=== PATIENT | female | born 1930 | race Caucasian/White ===

== ENCOUNTER 2017-07-13 00:10 | Inpatient (IN) | payer MEDICAID, OTHER ==
--- NOTE | 2017-07-13 01:41 | ED Physician Chart ---
ED Chief Complaint/HPI - Patient Information Date Seen:: 07/13/17 Time Seen:: 01:41 Allergies:: Allergies Allergy/AdvReac Type Severity Reaction Status Date / Time No Known Allergies Allergy Verified 07/13/17 01:38 Family Medical History - Family Member Daughter History Unknown: Yes Ethnicity: Non- Living Status: Still Living ED Assessment Location:: scalp Laceration Type:: Simple Wound Length: 0.4 cm Prep/Irrigation:: NS, hydrogen peroxide, betadine Comments: 4 robin were placed
[2017-07-13 03:30] LABS: HEMATOCRIT 31.8 % (41.0-60); HEMOGLOBIN 10.6 gm/dL (12-16); MEAN CELL VOLUME 88.2 fl (81-100); MEAN CORPUSCULAR HEMOGLOBIN 29.5 pg (27.0-31.0); MEAN CORPUSCULAR HGB CONC 33.5 pg (28.0-36.0); MEAN PLATELET VOLUME 6.8 fl; PLATELET COUNT 321 Th/cmm (150-400); RED CELL DISTRIBUTION WIDTH 15.5 % (11.5-20.0)
[2017-07-13 03:43] LABS: WHITE BLOOD COUNT 15.6 Th/cmm (4.8-10.8)
[2017-07-13 03:44] LABS: ALB/GLOB RATIO 0.9 (1.0-1.8); ALBUMIN 2.4 gm/dL (3.7-5.3); ALKALINE PHOSPHATASE 39 U/L (34-104); BILIRUBIN,TOTAL 0.7 mg/dL (0.3-1.0); BUN - UREA NITROGEN 8 mg/dL (7-25); CALCIUM SERUM 8.2 mg/dL (8.6-10.3); CARBON DIOXIDE 31.7 mEq/L (21.0-31.0); CHLORIDE 98 mEq/L (98-107); CREATININE - SERUM 0.6 mg/dL (0.6-1.2); GLUCOSE 106 mg/dL (70-105); SGOT 13 U/L (13-39); SGPT/ALT 7 U/L (7-52); SODIUM SERUM 135 mEq/L (136-145); TOTAL PROTEIN,SERUM 5.2 gm/dL (6.0-8.3)
[2017-07-13 03:50] LABS: POTASSIUM SERUM 2.7 mEq/L (3.5-5.1)
[2017-07-13] MEDS ORDERED: 0.9% NS w/40 mEq KCL 1,000 ML IV ONE ×2 (04:02→04:26)
[2017-07-13 04:12] LABS: MANUAL DIFF REQUIRED? YES; TOTAL CELLS COUNTED 100
[2017-07-13 04:13] LABS: BAND NEUTROPHILE 4 % (0-10); LYMPHOCYTE 7 % (20-50); MONOCYTE 4 % (2-10); NEUTROPHILS 85 % (40-80); PLATELET ESTIMATE ADEQUATE (NORMAL)
[2017-07-13 04:17] LABS: URINE MICROSCOPIC INDICATED? YES; URINE SOURCE CATH
[2017-07-13 04:19] LABS: URINE BILIRUBIN NEGATIVE (NEGATIVE); URINE BLOOD SMALL (NEGATIVE); URINE GLUCOSE (UA) NEGATIVE (NEGATIVE); URINE KETONE NEGATIVE (NEGATIVE); URINE LEUKOCYTE ESTERASE LARGE (NEGATIVE); URINE NITRATE NEGATIVE (NEGATIVE); URINE PH 6.5 (4.6 - 8.0); URINE PROTEIN NEGATIVE (NEGATIVE); URINE UROBILINOGEN 0.2 E.U./dL (0.2 - 1.0)
[2017-07-13 04:20] LABS: URINE CLARITY HAZY (CLEAR); URINE COLOR YELLOW
[2017-07-13 04:23] LABS: URINE BACTERIA 3+ /hpf (NONE SEEN); URINE EPITHELIAL CELLS FEW /lpf (FEW); URINE WBC 25-50 /hpf (0-5)
[2017-07-13] MEDS ORDERED: cefTRIAXone 1 GM in Sodium Chloride 0.9% 50 ML IV ONE (05:22)
[2017-07-13] MEDS ORDERED: Potassium Chloride 20 mEq ER Tab PO ONE (08:35)
--- NOTE | 2017-07-13 08:43 | History and Physical ---
History of Present Illness - HPI Chief Complaint: Boone down with Head laceration HPI: patient was at home and felt down hitting her head, she had an open wound and was transported to ER for evaluation. In ER wound was suturated, Head CT was normal but was found Leukocytosis and UTI, reason why she was hospitalized. Vital Signs: Last Vital Signs Temp 99.9 F 07/13/17 00:30 Pulse 104 07/13/17 00:30 Resp 18 07/13/17 00:30 BP 122/62 07/13/17 00:30 Pulse Ox 97 07/13/17 00:30 Past Medical History Cardiovascular: Report: No Pertinent Hx, CAD, CHF Pulmonary: Report: No Pertinent Hx [employer]: Report: No Pertinent Hx GI: Report: No Pertinent Hx Psych: Report: No Pertinent Hx Musculoskeletal: Report: Weakness Infectious Disease: Report: No Pertinent Hx Renal/: Report: No Pertinent Hx Endocrine: Report: Hyperthyroidism Dermatology: Report: No Pertinent Hx - Past Surgical History Past Surgical History: No pertinent Hx Family Medical History - Family Member Daughter History Unknown: Yes Ethnicity: Non- Living Status: Still Living Social History Smoke: No Alcohol: None Drugs: None Lives: With Family Domestic Violence: Negative - Medications Home Medications: Home Medication Medication Instructions Recorded Type Ascorbic Acid [Vitamin C] 500 mg PO DAILY 07/13/17 History Calcium Carbonate/Vitamin D3 1 each PO BID 07/13/17 History [Calcium 600-Vit D3 400 Tablet] Digoxin [Lanoxin] 0.125 mg PO DAILY 07/13/17 History Ferrous Sulfate [Iron] 325 mg PO DAILY 07/13/17 History Furosemide [Lasix] 40 mg PO BID 07/13/17 History Levothyroxine [Synthroid] 0.05 mg PO QDAC 07/13/17 History Potassium Chloride 1 cap PO DAILY 07/13/17 History Sennosides [Senna Laxative] 8.6 mg PO DAILY 07/13/17 History - Allergies Allergies/Adverse Reactions: Allergies Allergy/AdvReac Type Severity Reaction Status Date / Time No Known Allergies Allergy Verified 07/13/17 01:38 Review of Systems - Review of Systems Constitutional: Report: No Significant Eyes: Report: No Significant ENT: Report: No Significant Respiratory: Report: No Significant Cardiovascular: Report: No Significant Gastrointestinal: Report: No Significant Genitourinary: Report: No Significant Musculoskeletal: Report: No Significant Skin: Report: No Significant Neurological: Report: No Significant Physical Exam - Physical Exam HEENT: Report: Ears Nose Throat within normal limits, Other (Sutured wound in head) Neck: Report: Within normal limits Cardiovascular Systems: Report: Regular, Rate and Rhythm Respiratory: Report: Breath Sounds are within normal limits Abdomen: Report: Non-tender to palpation Back: Report: Inspection of back is within normal limits. Extremities: Report: Non-tender to palpation. Skin: Report: Color of skin is within normal limits Neuro/Psych: Report: Mood affect is within normal limits - Assessment Assessment: Patient is awake, alert, calm, in no acute distress. Dx: Head injury, UTI, CHF, Hypothyroidism. - Plan Plan: Patient is on IV NS, AB, and home meds. Will continue to monitor.
--- NOTE | 2017-07-13 08:48 | Diagnostic Imaging Report ---
Exam: CT examination of the brain. HISTORY: Head trauma. Total DLP equals 599 CTDI equals 29.5. Findings: Multiple contiguous thin section of the brain were obtained from the base of skull to the vertex without the administration of contrast material. No prior studies available comparison. The study demonstrates prominence of cerebral sulci and ventricles consistent with atrophy. Periventricular ischemic white matter changes are noted long-standing etiology. There is no evidence of hemorrhage midline shift or edema. The cerebellum is intact. Bony calvarium demonstrates no evidence of fracture. The paranasal sinuses are well aerated. Calcification of vertebral arteries appreciated. IMPRESSION: Atrophy, periventricular ischemic white matter changes long-standing etiology.
--- NOTE | 2017-07-13 08:50 | Diagnostic Imaging Report ---
Exam: Left wrist joint. HISTORY: Trauma deformity Findings. Multiple views of left wrist joint reviewed. The study demonstrates severe osteopenia superimposed osteoporosis. There is evidence for impacted fracture of distal left radius with the dorsal angulation. The visualized carpal bones are intact. IMPRESSION: Severe osteopenia superimposed osteoporosis Impacted fracture distal left radius with the dorsal angulation..
[2017-07-13] MEDS ORDERED: CALCIUM CARBONATE PO SCH (09:00)
[2017-07-13] MEDS ORDERED: [UNRECOGNIZED DRUG - OTHER] PO SCH (09:00)
[2017-07-13] MEDS ORDERED: VITAMIN D3 PO SCH (09:00)
[2017-07-13] MEDS ORDERED: Non-Formulary Item 1 EA (Potassium Chloride [Potassium Chloride] 1 CAP) PO SCH (09:00)
[2017-07-13] MEDS: cefTRIAXone 1 GM in Sodium Chloride 0.9% 50 ML IV SCH (09:17)
[2017-07-13] MEDS: Potassium Chloride 10 mEq ER Tab PO SCH (09:30)
[2017-07-13] MEDS: Calcium Carb/Vit D 500 mg/200 U Tab PO SCH ×2 (09:33→16:54)
[2017-07-13] MEDS: Ferrous Sulfate 325 MG TAB PO SCH (09:33)
[2017-07-13] MEDS ORDERED: Pneumococcal Vaccine 0.5 mL Vial IM ONE (12:02)
[2017-07-13] MEDS: Sodium Chloride 0.9% 1,000 ML IV SCH (22:39)
[2017-07-14 06:35] LABS: % BASOPHILS 1.9 % (0.0-2.0); % EOSINOPHILS 5.5 % (0.0-5.0); % LYMPHOCYTES 15.8 % (20.0-50.0); % MONOCYTES 8.1 % (2.0-10.0); % NEUTROPHILS 68.7 % (40.0-80.0); BASOPHILE ABSOLUTE 0.1 Th/cumm (0-0.2); EOSINOPHILE ABSOLUTE 0.4 Th/cmm (0.1-0.4); HEMATOCRIT 32.2 % (41.0-60); HEMOGLOBIN 10.7 gm/dL (12-16); LYMPHOCYTE ABSOLUTE 1.2 Th/cmm (1.5-3.0); MEAN CELL VOLUME 88.2 fl (81-100); MEAN CORPUSCULAR HEMOGLOBIN 29.4 pg (27.0-31.0); MEAN CORPUSCULAR HGB CONC 33.3 pg (28.0-36.0); MEAN PLATELET VOLUME 7.3 fl; MONOCYTE ABSOLUTE 0.6 Th/cmm (0.3-1.0); NEUTROPHILE ABSOLUTE 5.1 Th/cmm (1.8-8.0); PLATELET COUNT 321 Th/cmm (150-400); RED BLOOD COUNT 3.65 Mil/cmm (3.80-5.20); RED CELL DISTRIBUTION WIDTH 15.8 % (11.5-20.0)
[2017-07-14 06:43] LABS: WHITE BLOOD COUNT 7.4 Th/cmm (4.8-10.8)
[2017-07-14 07:05] LABS: ALB/GLOB RATIO 0.9 (1.0-1.8); ALBUMIN 2.4 gm/dL (3.7-5.3); ALKALINE PHOSPHATASE 38 U/L (34-104); BILIRUBIN,TOTAL 0.4 mg/dL (0.3-1.0); BUN - UREA NITROGEN 7 mg/dL (7-25); CALCIUM SERUM 8.3 mg/dL (8.6-10.3); CARBON DIOXIDE 34.2 mEq/L (21.0-31.0); CHLORIDE 101 mEq/L (98-107); CREATININE - SERUM 0.6 mg/dL (0.6-1.2); GLUCOSE 75 mg/dL (70-105); POTASSIUM SERUM 3.2 mEq/L (3.5-5.1); SGOT 17 U/L (13-39); SGPT/ALT 7 U/L (7-52); SODIUM SERUM 141 mEq/L (136-145); TOTAL PROTEIN,SERUM 5.2 gm/dL (6.0-8.3)
[2017-07-14] MEDS ORDERED: Levothyroxine 0.05 Mg Tab PO SCH (07:30)
--- NOTE | 2017-07-14 08:39 | General Progress Note ---
Subjective - Review of Systems Service Date: 07/14/17 Subjective: I am OK Objective - Results Result Diagrams: 07/14/17 06:00 07/14/17 06:00 Recent Labs: Laboratory Last Values WBC 7.4 Th/cmm (4.8-10.8) D 07/14/17 06:00 RBC 3.65 Mil/cmm (3.80-5.20) L 07/14/17 06:00 Hgb 10.7 gm/dL (12-16) L 07/14/17 06:00 Hct 32.2 % (41.0-60) L 07/14/17 06:00 MCV 88.2 fl (81-100) 07/14/17 06:00 MCH 29.4 pg (27.0-31.0) 07/14/17 06:00 MCHC Differential 33.3 pg (28.0-36.0) 07/14/17 06:00 RDW 15.8 % (11.5-20.0) 07/14/17 06:00 Plt Count 321 Th/cmm (150-400) 07/14/17 06:00 MPV 7.3 fl 07/14/17 06:00 Neutrophils % 68.7 % (40.0-80.0) 07/14/17 06:00 Band Neutrophils % 4 % (0-10) 07/13/17 03:23 Lymphocytes % 15.8 % (20.0-50.0) L 07/14/17 06:00 Monocytes % 8.1 % (2.0-10.0) 07/14/17 06:00 Eosinophils % 5.5 % (0.0-5.0) H 07/14/17 06:00 Basophils % 1.9 % (0.0-2.0) 07/14/17 06:00 Neutrophils (Manual) 85 % (40-80) H 07/13/17 03:23 Lymphocytes 7 % (20-50) L 07/13/17 03:23 Monocytes 4 % (2-10) 07/13/17 03:23 Platelet Estimate ADEQUATE (NORMAL) 07/13/17 03:23 Sodium 141 mEq/L (136-145) 07/14/17 06:00 Potassium 3.2 mEq/L (3.5-5.1) L 07/14/17 06:00 Chloride 101 mEq/L (98-107) 07/14/17 06:00 Carbon Dioxide 34.2 mEq/L (21.0-31.0) H 07/14/17 06:00 Anion Gap 9.0 (7.0-16.0) 07/14/17 06:00 BUN 7 mg/dL (7-25) 07/14/17 06:00 Creatinine 0.6 mg/dL (0.6-1.2) 07/14/17 06:00 Est GFR ( Amer) TNP 07/14/17 06:00 Est GFR (Non-Af Amer) TNP 07/14/17 06:00 BUN/Creatinine Ratio 11.7 07/14/17 06:00 Glucose 75 mg/dL (70-105) 07/14/17 06:00 Whole Bld Lactic Acid 0.88 mmol/L (0.60-1.99) 07/13/17 03:23 Calcium 8.3 mg/dL (8.6-10.3) L 07/14/17 06:00 Total Bilirubin 0.4 mg/dL (0.3-1.0) 07/14/17 06:00 AST 17 U/L (13-39) 07/14/17 06:00 ALT 7 U/L (7-52) 07/14/17 06:00 Alkaline Phosphatase 38 U/L (34-104) 07/14/17 06:00 Total Protein 5.2 gm/dL (6.0-8.3) L 07/14/17 06:00 Albumin 2.4 gm/dL (3.7-5.3) L 07/14/17 06:00 Globulin 2.8 gm/dL 07/14/17 06:00 Albumin/Globulin Ratio 0.9 (1.0-1.8) L 07/14/17 06:00 TSH 13.35 uIU/ml (0.34-5.60) H 07/14/17 06:00 Urine Source CATH 07/13/17 04:00 Urine Color YELLOW 07/13/17 04:00 Urine Clarity HAZY (CLEAR) 07/13/17 04:00 Urine pH 6.5 (4.6 - 8.0) 07/13/17 04:00 Ur Specific [place] 1.015 (1.005-1.030) 07/13/17 04:00 Urine Protein NEGATIVE mg/dL (NEGATIVE) 07/13/17 04:00 Urine Glucose (UA) NEGATIVE mg/dL (NEGATIVE) 07/13/17 04:00 Urine Ketones NEGATIVE mg/dL (NEGATIVE) 07/13/17 04:00 Urine Blood SMALL (NEGATIVE) H 07/13/17 04:00 Urine Nitrate NEGATIVE (NEGATIVE) 07/13/17 04:00 Urine Bilirubin NEGATIVE (NEGATIVE) 07/13/17 04:00 Urine Urobilinogen 0.2 E.U./dL (0.2 - 1.0) 07/13/17 04:00 Ur Leukocyte Esterase LARGE (NEGATIVE) H 07/13/17 04:00 Urine RBC 2-5 /hpf (0-5) 07/13/17 04:00 Urine WBC 25-50 /hpf (0-5) H 07/13/17 04:00 Ur Epithelial Cells FEW /lpf (FEW) 07/13/17 04:00 Urine Bacteria 3+ /hpf (NONE SEEN) H 07/13/17 04:00 - Physical Exam Vitals and I&O: Vital Signs Temp 97.6 F 07/14/17 08:00 Pulse 79 07/14/17 08:00 Resp 18 07/14/17 08:08 BP 104/55 07/14/17 08:00 Pulse Ox 97 07/14/17 08:00 Intake & Output 07/13/17 07/14/17 07/14/17 18:59 06:59 18:59 Intake Total 100 Balance 100 Weight (lbs) 45.359 kg Intake: Oral 100 Other: # Voids 2 # Bowel Movements 0 Active Medications: Current Medications Ascorbic Acid (Vitamin C) [address] [facility] Stop: 09/11/17 08:59 Last Admin: 07/13/17 09:30 Dose: 500 mg Calcium/Vitamin D (Oscal W/Vitamin D) [address] [facility] Stop: 09/11/17 08:59 Last Admin: 07/13/17 16:54 Dose: 1 tab Digoxin (Lanoxin) 0.125 mg PO DAILY [facility] Stop: 09/11/17 08:59 Last Admin: 07/13/17 09:33 Dose: 0.125 mg Ferrous Sulfate (Iron) 325 mg PO DAILY [facility] Stop: 09/11/17 08:59 Last Admin: 07/13/17 09:33 Dose: 325 mg Furosemide (Lasix) 40 mg PO BID [facility] Stop: 09/11/17 08:59 Last Admin: 07/13/17 16:46 Dose: 40 mg Sodium Chloride (Nacl 0.9%) 1,000 mls @ 75 mls/hr IV .[id number] [facility] Stop: 09/11/17 08:31 Last Admin: 07/13/17 22:39 Dose: 75 mls/hr Ceftriaxone Sodium 1 gm/ (Sodium Chloride) 50 mls @ 100 mls/hr IV Q24HR [facility] Stop: 09/11/17 08:44 Last Admin: 07/13/17 09:17 Dose: Not Given Potassium Chloride (Klor-Con) 10 meq PO DAILY [facility] Stop: 09/11/17 08:59 Last Admin: 07/13/17 09:30 Dose: 10 meq Senna (Senna) 8.6 mg PO DAILY [facility] Stop: 09/11/17 08:59 Last Admin: 07/13/17 09:30 Dose: 8.6 mg General: Alert, No acute distress HEENT: Atraumatic Neck: Supple Cardiovascular: Regular rate Lungs: Clear to auscultation Abdomen: Bowel sounds, Soft Extremities: Other (There is fracture of left wrist.) Neurological: Other (Unatable gait) Skin: Other (Warm and dry) Psych/Mental Status: Mental status NL Assessment/Plan - Assessment Assessment: Patient is awake, alert, calm, in no acute distress. Dx: Head injury, UTI, CHF, Hypothyroidism, Wrist fracture. - Plan Plan: Patient is on IV NS, AB, and home meds. Consult with Ortho requested. Will continue to monitor.
[2017-07-14] MEDS: cefTRIAXone 1 GM in Sodium Chloride 0.9% 50 ML IV SCH (08:42)
[2017-07-14] MEDS: Calcium Carb/Vit D 500 mg/200 U Tab PO SCH ×2 (08:43→17:01)
[2017-07-14] MEDS: Potassium Chloride 10 mEq ER Tab PO SCH (08:43)
[2017-07-14] MEDS: Ferrous Sulfate 325 MG TAB PO SCH (08:43)
[2017-07-14] MEDS ORDERED: Probiotic Screen MC PRN (17:00)
[2017-07-14] MEDS: Sodium Chloride 0.9% 1,000 ML IV SCH (17:01)
--- NOTE | 2017-07-14 22:42 | Consultation ---
DATE OF CONSULTATION: 07/13/2017 HISTORY AND PHYSICAL: This is an 87 years old female patient who had a fall. Following this, the patient had a fracture of the right radius. The patient is advised to have cardiac clearance, hence the patient is seen. The patient has no complaint of chest pain, palpitation. The patient during the fall had laceration of the scalp. PAST MEDICAL HISTORY: Hypertension, COPD, congestive heart failure, chronic right radius fracture, osteoporosis, iron deficiency anemia. FAMILY HISTORY: Unremarkable. SOCIAL HISTORY: No history of smoking, alcohol abuse. ALLERGIES: No known allergies. PHYSICAL EXAMINATION: VITAL SIGNS: Blood pressure 130/80, pulse 70, respirations 20. HEAD: Normocephalic. No lumps or bumps. EYES: Pupils equal, reactive to light. Fundi shows AV nicking, sclerae white, conjunctivae pink. NECK: Carotid 2+. Normal upstroke. JVD flat. Thyroid not palpable. Lymph nodes not palpable. CHEST: Shows increased AP diameter. No kyphosis, scoliosis. LUNGS: Bilateral bronchovesicular breath sounds. Occasional wheeze. No rales. HEART: PMI fifth intercostal space with lateral to midclavicular line. S1, S2. No S3, S4. Systolic murmur grade 2/6, lower left sternal border without radiation. ABDOMEN: Soft. Liver, spleen not palpable. No organomegaly. Bowel sounds active. NEUROLOGIC: Unremarkable. EXTREMITIES: Peripheral pulses 2+. No pedal edema. The patient has right radius fracture. CLINICAL IMPRESSION: 1. Laceration to the scalp. 2. Right radius fracture. 3. Hypertension. 4. Chronic obstructive pulmonary disease. 5. Congestive heart failure. 6. Chronic urinary tract infection on Rocephin. 7. Osteoporosis. 8. Iron deficiency anemia. PLAN: The patient is cleared for surgery. Due to the age, the patient is a high risk. JOB# [id number]
[2017-07-14] MEDS ORDERED: Piperacillin Sodium/Tazobact 3.375 gm Vial IV ONE (23:53)
--- NOTE | 2017-07-15 00:15 | Consultation ---
DATE OF CONSULTATION: 07/14/2017 INFECTIOUS DISEASE CONSULTATION REFERRING PHYSICIAN: José Smart MD. REASON FOR CONSULTATION: UTI and sepsis. HISTORY OF PRESENT ILLNESS: The patient is an 87-year-old female with no significant past medical history, fell down and hit her head. The patient developed upon wound, so she was brought to the ER for further evaluation and management. On initial evaluation, the patient was afebrile and her WBC count was 15,600 and neutrophils 85%. Sepsis workup was performed. Blood culture grew gram-negative rods. Urinalysis showed pyuria and bacteriuria. The patient was started on Rocephin and Infectious Disease consultation was called for further antibiotic management. PAST MEDICAL HISTORY: None significant. MEDICATIONS: See medication reconciliation sheet. Antibiotic-neal, the patient is receiving Rocephin. FAMILY HISTORY: Not available. SOCIAL HISTORY: The patient lives at home with the family. No history of smoking, alcohol, or drug use. ALLERGIES: NKDA. REVIEW OF SYSTEMS: CONSTITUTIONAL: The patient denies fever or chills. The patient denies any generalized weakness. HEENT: No diplopia, no photophobia, and no sore throat. RESPIRATORY: No cough. No shortness of breath. CARDIOVASCULAR: No chest pain or palpitation. GASTROINTESTINAL: No nausea, no vomiting, no diarrhea, and no constipation. GENITOURINARY: No dysuria. NEUROLOGIC: No headache, no dizziness, and no focal weakness. PHYSICAL EXAMINATION: VITAL SIGNS: Current vital signs shows temperature is 97.8 degree Fahrenheit, pulse 76, respirations 18, and blood pressure 122/56. GENERAL: The patient is comfortable lying in bed. HEENT: Head is normocephalic and atraumatic. Oral cavity moist, pink tongue. Eyes: No pallor, no icterus. Pupils PERRLA, EOMI. NECK: Supple. No JVD. No carotid bruit. Trachea in midline. CHEST: Bilateral breath sounds. No crackles or wheezing. HEART: S1, S2 within normal limit. Regular rhythm. No murmur. ABDOMEN: Soft, nontender, and nondistended. Bowel sounds present. EXTREMITIES: No cyanosis, no clubbing, and no edema. NEUROLOGICAL: Alert, awake, and oriented x 3. BACK: No CVA tenderness. SKIN: The patient has open wound with surrounding redness in back of the head and there are some skin tears also. LABORATORY DATA: Current lab shows WBC count is 7400, hemoglobin 10.7, hematocrit 32.2, platelets are 321,000, neutrophils 69%. Sodium is 141, potassium is 3.2, chloride is 101, bicarbonate is 34, BUN is 7, creatinine is 0.6, and glucose is 75. AST is 13.35. Urinalysis shows hazy urine with a large leukoesterase, wbc's 25-50, and 3+ bacteria. Urine culture grew gram-negative rods more than 100,000 and blood culture one set grew gram-negative rods. IMPRESSION: 1. Gram-negative wilder sepsis, improving. 2. Urinary tract infection, rule out pyelonephritis. 3. Scalp wound with mild cellulitis. 4. Anemia. RECOMMENDATIONS AND PLAN: Change the Rocephin to Zosyn and repeat blood culture in the morning and renal ultrasound. Depending on the test report and culture report, we will define further antibiotic therapy. Discussed with the patient. [facility]# [id number] MTDD
[2017-07-15 06:38] LABS: EOSINOPHILE ABSOLUTE 0.1 Th/cmm (0.1-0.4); HEMATOCRIT 31.7 % (41.0-60); HEMOGLOBIN 10.6 gm/dL (12-16); LYMPHOCYTE ABSOLUTE 0.4 Th/cmm (1.5-3.0); MEAN CORPUSCULAR HEMOGLOBIN 29.7 pg (27.0-31.0); MEAN CORPUSCULAR HGB CONC 33.4 pg (28.0-36.0); MEAN PLATELET VOLUME 7.3 fl; MONOCYTE ABSOLUTE 0.1 Th/cmm (0.3-1.0); NEUTROPHILE ABSOLUTE 11.2 Th/cmm (1.8-8.0); PLATELET COUNT 274 Th/cmm (150-400); RED BLOOD COUNT 3.56 Mil/cmm (3.80-5.20); RED CELL DISTRIBUTION WIDTH 15.7 % (11.5-20.0)
[2017-07-15 06:39] LABS: WHITE BLOOD COUNT 11.8 Th/cmm (4.8-10.8)
[2017-07-15 07:03] LABS: ALB/GLOB RATIO 0.9 (1.0-1.8); ALBUMIN 2.4 gm/dL (3.7-5.3); ALKALINE PHOSPHATASE 33 U/L (34-104); ANION GAP 10.9 (7.0-16.0); BILIRUBIN,TOTAL 0.4 mg/dL (0.3-1.0); BUN - UREA NITROGEN 6 mg/dL (7-25); CALCIUM SERUM 8.1 mg/dL (8.6-10.3); CARBON DIOXIDE 32.2 mEq/L (21.0-31.0); CHLORIDE 98 mEq/L (98-107); CREATININE - SERUM 0.6 mg/dL (0.6-1.2); GLUCOSE 99 mg/dL (70-105); POTASSIUM SERUM 3.1 mEq/L (3.5-5.1); SGOT 16 U/L (13-39); SGPT/ALT 7 U/L (7-52); SODIUM SERUM 138 mEq/L (136-145); TOTAL PROTEIN,SERUM 5.2 gm/dL (6.0-8.3)
[2017-07-15] MEDS: Sodium Chloride 0.9% 1,000 ML IV SCH ×2 (07:21→22:16)
[2017-07-15] MEDS: Levothyroxine 0.075 Mg Tab PO SCH (07:21)
[2017-07-15] MEDS: Ferrous Sulfate 325 MG TAB PO SCH (08:56)
[2017-07-15] MEDS: Calcium Carb/Vit D 500 mg/200 U Tab PO SCH ×2 (08:56→17:07)
[2017-07-15] MEDS: Potassium Chloride 10 mEq ER Tab PO SCH (08:57)
[2017-07-15] MEDS: Lactobacillus Rhamnosus GG 15 Billion CFU CAP.SPRINK PO SCH (08:57)
[2017-07-15] MEDS ORDERED: Potassium Phosphate 20 MMOLE in Sodium Chloride 0.9% 250 ML IV ONE (12:41)
[2017-07-15] MEDS ORDERED: Potassium Chloride 10 mEq ER Tab PO SCH (12:41)
--- NOTE | 2017-07-15 12:44 | General Progress Note ---
Subjective - Review of Systems Service Date: 07/15/17 Subjective: I am OK Objective - Results Result Diagrams: 07/15/17 05:40 07/15/17 05:40 Recent Labs: Laboratory Last Values WBC 11.8 Th/cmm (4.8-10.8) H D 07/15/17 05:40 RBC 3.56 Mil/cmm (3.80-5.20) L 07/15/17 05:40 Hgb 10.6 gm/dL (12-16) L 07/15/17 05:40 Hct 31.7 % (41.0-60) L 07/15/17 05:40 MCV 89.0 fl (81-100) 07/15/17 05:40 MCH 29.7 pg (27.0-31.0) 07/15/17 05:40 MCHC Differential 33.4 pg (28.0-36.0) 07/15/17 05:40 RDW 15.7 % (11.5-20.0) 07/15/17 05:40 Plt Count 274 Th/cmm (150-400) 07/15/17 05:40 MPV 7.3 fl 07/15/17 05:40 Neutrophils % 68.7 % (40.0-80.0) 07/14/17 06:00 Band Neutrophils % 4 % (0-10) 07/13/17 03:23 Lymphocytes % 15.8 % (20.0-50.0) L 07/14/17 06:00 Monocytes % 8.1 % (2.0-10.0) 07/14/17 06:00 Eosinophils % 5.5 % (0.0-5.0) H 07/14/17 06:00 Basophils % 1.9 % (0.0-2.0) 07/14/17 06:00 Neutrophils (Manual) 85 % (40-80) H 07/13/17 03:23 Lymphocytes 7 % (20-50) L 07/13/17 03:23 Monocytes 4 % (2-10) 07/13/17 03:23 Platelet Estimate ADEQUATE (NORMAL) 07/13/17 03:23 Sodium 138 mEq/L (136-145) 07/15/17 05:40 Potassium 3.1 mEq/L (3.5-5.1) L 07/15/17 05:40 Chloride 98 mEq/L (98-107) 07/15/17 05:40 Carbon Dioxide 32.2 mEq/L (21.0-31.0) H 07/15/17 05:40 Anion Gap 10.9 (7.0-16.0) 07/15/17 05:40 BUN 6 mg/dL (7-25) L 07/15/17 05:40 Creatinine 0.6 mg/dL (0.6-1.2) 07/15/17 05:40 Est GFR ( Amer) TNP 07/15/17 05:40 Est GFR (Non-Af Amer) TNP 07/15/17 05:40 BUN/Creatinine Ratio 10.0 07/15/17 05:40 Glucose 99 mg/dL (70-105) 07/15/17 05:40 Whole Bld Lactic Acid 0.88 mmol/L (0.60-1.99) 07/13/17 03:23 Calcium 8.1 mg/dL (8.6-10.3) L 07/15/17 05:40 Total Bilirubin 0.4 mg/dL (0.3-1.0) 07/15/17 05:40 AST 16 U/L (13-39) 07/15/17 05:40 ALT 7 U/L (7-52) 07/15/17 05:40 Alkaline Phosphatase 33 U/L (34-104) L 07/15/17 05:40 Total Protein 5.2 gm/dL (6.0-8.3) L 07/15/17 05:40 Albumin 2.4 gm/dL (3.7-5.3) L 07/15/17 05:40 Globulin 2.8 gm/dL 07/15/17 05:40 Albumin/Globulin Ratio 0.9 (1.0-1.8) L 07/15/17 05:40 TSH 13.35 uIU/ml (0.34-5.60) H 07/14/17 06:00 Urine Source CATH 07/13/17 04:00 Urine Color YELLOW 07/13/17 04:00 Urine Clarity HAZY (CLEAR) 07/13/17 04:00 Urine pH 6.5 (4.6 - 8.0) 07/13/17 04:00 Ur Specific [place] 1.015 (1.005-1.030) 07/13/17 04:00 Urine Protein NEGATIVE mg/dL (NEGATIVE) 07/13/17 04:00 Urine Glucose (UA) NEGATIVE mg/dL (NEGATIVE) 07/13/17 04:00 Urine Ketones NEGATIVE mg/dL (NEGATIVE) 07/13/17 04:00 Urine Blood SMALL (NEGATIVE) H 07/13/17 04:00 Urine Nitrate NEGATIVE (NEGATIVE) 07/13/17 04:00 Urine Bilirubin NEGATIVE (NEGATIVE) 07/13/17 04:00 Urine Urobilinogen 0.2 E.U./dL (0.2 - 1.0) 07/13/17 04:00 Ur Leukocyte Esterase LARGE (NEGATIVE) H 07/13/17 04:00 Urine RBC 2-5 /hpf (0-5) 07/13/17 04:00 Urine WBC 25-50 /hpf (0-5) H 07/13/17 04:00 Ur Epithelial Cells FEW /lpf (FEW) 07/13/17 04:00 Urine Bacteria 3+ /hpf (NONE SEEN) H 07/13/17 04:00 - Physical Exam Vitals and I&O: Vital Signs Temp 97.1 F 07/15/17 08:00 Pulse 95 07/15/17 08:56 Resp 20 07/15/17 08:00 BP 103/47 07/15/17 08:56 Pulse Ox 97 07/15/17 08:00 Intake & Output 07/14/17 07/15/17 07/15/17 18:59 06:59 18:59 Intake Total 1050 1050 50 Balance 1050 1050 50 Weight (lbs) 47.627 kg Intake: Intake, IV Amount 1050 1000 50 Piperacillin Sodium/ 50 Tazobact 3.375 gm In Sodium Chloride 0.9% 50 ml @ 100 mls/hr IV Q8H [facility] Rx#:[id number] Sodium Chloride 0.9% 1, 1000 1000 000 ml @ 75 mls/hr IV . [id number] [facility] Rx#:[id number] 1 gm In 50 Sodium Chloride 0.9% 50 ml @ 100 mls/hr IV Q24HR [facility] Rx#:[id number] Oral 50 Other: # Voids 3 # Bowel Movements 0 Active Medications: Current Medications Acetaminophen (Tylenol) 650 mg PO Q6H PRN PRN Reason: Pain (Moderate) Stop: 09/13/17 10:44 Last Admin: 07/15/17 11:24 Dose: 650 mg Ascorbic Acid (Vitamin C) 500 mg PO DAILY [facility] Stop: 09/11/17 08:59 Last Admin: 07/15/17 08:56 Dose: 500 mg Calcium/Vitamin D (Oscal W/Vitamin D) 1 tab PO BID [facility] Stop: 09/11/17 08:59 Last Admin: 07/15/17 08:56 Dose: 1 tab Digoxin (Lanoxin) 0.125 mg PO DAILY [facility] Stop: 09/11/17 08:59 Last Admin: 07/15/17 08:56 Dose: 0.125 mg Ferrous Sulfate (Iron) 325 mg PO DAILY [facility] Stop: 09/11/17 08:59 Last Admin: 07/15/17 08:56 Dose: 325 mg Furosemide (Lasix) 40 mg PO BID [facility] Stop: 09/11/17 08:59 Last Admin: 07/15/17 08:56 Dose: Not Given Sodium Chloride (Nacl 0.9%) 1,000 mls @ 75 mls/hr IV .[id number] [facility] Stop: 09/11/17 08:31 Last Admin: 07/15/17 07:21 Dose: 75 mls/hr Piperacillin Sod/Tazobactam (Sod 3.375 gm/ Sodium Chloride) 50 mls @ 100 mls/ hr IV Q8H [facility] Stop: 09/13/17 07:59 Last Infusion: 07/15/17 11:23 Dose: Infused Potassium Phosphate 20 mmole/ (Sodium Chloride) 256.6667 mls @ 42.5 mls/hr IV X1 ONE Stop: 07/15/17 18:43 Lactobacillus Rhamnosus (Culturelle 15b) 1 each PO DAILY [facility] Stop: 09/13/17 08:59 Last Admin: 07/15/17 08:57 Dose: 1 each Levothyroxine Sodium (Synthroid) 0.075 mg PO QDAC [facility] Stop: 09/13/17 07:29 Last Admin: 07/15/17 07:21 Dose: 0.075 mg Miscellaneous (Probiotic Screen) 1 Health system PRN PRN PRN Reason: PROTOCOL Stop: 09/12/17 16:59 Potassium Chloride (Klor-Con) 20 meq PO DAILY [facility] Stop: 09/11/17 08:59 Senna (Senna) 8.6 mg PO DAILY [facility] Stop: 09/11/17 08:59 Last Admin: 07/15/17 08:57 Dose: 8.6 mg General: Alert, No acute distress HEENT: Atraumatic Neck: Supple Cardiovascular: Regular rate Lungs: Clear to auscultation Abdomen: Bowel sounds, Soft Extremities: Other (There is fracture of left wrist.) Neurological: Other (Unatable gait) Skin: Other (Warm and dry) Psych/Mental Status: Mental status NL - Procedures Procedures: Procedures Procedure Code Date REPAIR SCALP SKIN, EXTERNAL APPROACH [id number] 07/13/17 RPR S/N/AX/GEN/TRNK 2.5CM/< 31166 07/13/17 Assessment/Plan - Assessment Assessment: Patient is awake, alert, calm, in no acute distress. WBC increased today. Dx: Head injury, UTI, CHF, Hypothyroidism, Wrist fracture. - Plan Plan: Patient is on IV NS, AB, K is replaced, and home meds. Already seen by Ortho. Will continue to monitor. Nutritional Asmnt/Malnutr-PDOC - Dietary Evaluation Malnutrition Findings (Please click <Entered> for more info): Nutritional Asmnt/Malnutrition Start: 07/14/17 15: 11 Text: Status: Complete Freq: Document 07/14/17 16:29 LCHENG (Rec: 07/14/17 16:42 [email or web address] [id number]) Nutritional Asmnt/Malnutrition Patient General Information Nutritional Screening High Risk Consult Diagnosis leukocytosis, possiblely secondary to UTI Pertinent Medical Hx/Surgical Hx CAD, CFH, weakness Subjective Information Pt seen lying in bed at the time of visit, awake and alert . Pt reported appetite pretty good, has very few teeth noted , denied chewing or swallowing problem. Pt likes food, no food prefernce provided. Pt appeared mild muscle wasting on arms. Checked pt again in the afternoon, pt was confused . Per DIRT SHOVELER, pt consumed about 60% of lunch, ate slowly, will continue to monitor dinner. Current Diet Order/ Nutrition Support [facility] soft chopped, 1800 jasmyne ADA, ccho 45gm Pertinent Medications vitamin C, calcium, vitamin D, iron, lasix, synthroid, kcl, senna, NAcl 0.9% Pertinent Labs 07/14 Na 141, K 3.2, Cl 101, BUN 7, Cr 0.6, Ca 8.3, Glucose 75, Alb 2.4 Nutritional Hx/Data Height 1.63 m Height (Calculated Centimeters) 162.6 Current Weight (lbs) 45.359 kg Weight (Calculated Kilograms) 45.4 Weight (Calculated Grams) 42958.2 [place] Body Weight 120 % [place] Body Weight 83 Body Mass Index (BMI) 17.2 Weight Status Underweight GI Symptoms GI Symptoms None Last BM none Usual diet at home pt lives with family, eats vegetables, meat, dairy Skin Integrity/Comment: bruise to R/L arm, skin tear to right leg and buttocks, laceration to left head, has 4 stiches on left side of scaple Current %PO Fair (50-74%) Estimated Nutritional Goals Calories/Kcals/Kg 25-30 Kcals Calculated 5006-6524 based on IBW 54.5kg Protein g/k-1.2 Protein Calculated 55-65 Fluid: ml 1363-1635ml (1ml/kcal) Nutritional Problem 2. Problem Problem underweight Etiology possible inadequate energy intake Signs/Symptoms: BMI 17.2 1. Problem Problem altered nutrition related lab values Etiology imbalanced electrolytes Signs/Symptoms: K 3.2 Malnutrition Alert Protein-Calorie Malnutrition N/A Is there a minimum of two criteria No selected? Query Text:Check all the applicable criteria. A minimum of two criteria are recommended for diagnosis of either severe or non-severe malnutrition. Intervention/Recommendation Comments 1. If pt shows chewing difficulty, will consider down grade to [facility] soft ground diet. DIRT SHOVELER made aware, will report to RN if need diet modification. 2. Monitor PO intake and tolerance, wt, labs and skin integrity 3. F/U as high risk in 2-3 days, 07/16-07/17 Expected Outcomes/Goals Expected Outcomes/Goals 1. PO intake to meet at least 75% of nutritional needs. 2. Wt stability, skin to remain intact, labs to approach WNL.
--- NOTE | 2017-07-15 14:31 | Infectious Disease Prog Note ---
Infectious Disease Subjective - Review of Systems Service Date: 07/15/17 Subjective: There is no new change, no fever. Infectious Disease Objective - Results Result Diagrams: 07/15/17 05:40 07/15/17 05:40 Recent Labs: Laboratory Last Values WBC 11.8 Th/cmm (4.8-10.8) H D 07/15/17 05:40 RBC 3.56 Mil/cmm (3.80-5.20) L 07/15/17 05:40 Hgb 10.6 gm/dL (12-16) L 07/15/17 05:40 Hct 31.7 % (41.0-60) L 07/15/17 05:40 MCV 89.0 fl (81-100) 07/15/17 05:40 MCH 29.7 pg (27.0-31.0) 07/15/17 05:40 MCHC Differential 33.4 pg (28.0-36.0) 07/15/17 05:40 RDW 15.7 % (11.5-20.0) 07/15/17 05:40 Plt Count 274 Th/cmm (150-400) 07/15/17 05:40 MPV 7.3 fl 07/15/17 05:40 Neutrophils % 68.7 % (40.0-80.0) 07/14/17 06:00 Band Neutrophils % 4 % (0-10) 07/13/17 03:23 Lymphocytes % 15.8 % (20.0-50.0) L 07/14/17 06:00 Monocytes % 8.1 % (2.0-10.0) 07/14/17 06:00 Eosinophils % 5.5 % (0.0-5.0) H 07/14/17 06:00 Basophils % 1.9 % (0.0-2.0) 07/14/17 06:00 Neutrophils (Manual) 85 % (40-80) H 07/13/17 03:23 Lymphocytes 7 % (20-50) L 07/13/17 03:23 Monocytes 4 % (2-10) 07/13/17 03:23 Platelet Estimate ADEQUATE (NORMAL) 07/13/17 03:23 Sodium 138 mEq/L (136-145) 07/15/17 05:40 Potassium 3.1 mEq/L (3.5-5.1) L 07/15/17 05:40 Chloride 98 mEq/L (98-107) 07/15/17 05:40 Carbon Dioxide 32.2 mEq/L (21.0-31.0) H 07/15/17 05:40 Anion Gap 10.9 (7.0-16.0) 07/15/17 05:40 BUN 6 mg/dL (7-25) L 07/15/17 05:40 Creatinine 0.6 mg/dL (0.6-1.2) 07/15/17 05:40 Est GFR ( Amer) TNP 07/15/17 05:40 Est GFR (Non-Af Amer) TNP 07/15/17 05:40 BUN/Creatinine Ratio 10.0 07/15/17 05:40 Glucose 99 mg/dL (70-105) 07/15/17 05:40 Whole Bld Lactic Acid 0.88 mmol/L (0.60-1.99) 07/13/17 03:23 Calcium 8.1 mg/dL (8.6-10.3) L 07/15/17 05:40 Total Bilirubin 0.4 mg/dL (0.3-1.0) 07/15/17 05:40 AST 16 U/L (13-39) 07/15/17 05:40 ALT 7 U/L (7-52) 07/15/17 05:40 Alkaline Phosphatase 33 U/L (34-104) L 07/15/17 05:40 Total Protein 5.2 gm/dL (6.0-8.3) L 07/15/17 05:40 Albumin 2.4 gm/dL (3.7-5.3) L 07/15/17 05:40 Globulin 2.8 gm/dL 07/15/17 05:40 Albumin/Globulin Ratio 0.9 (1.0-1.8) L 07/15/17 05:40 TSH 13.35 uIU/ml (0.34-5.60) H 07/14/17 06:00 Urine Source CATH 07/13/17 04:00 Urine Color YELLOW 07/13/17 04:00 Urine Clarity HAZY (CLEAR) 07/13/17 04:00 Urine pH 6.5 (4.6 - 8.0) 07/13/17 04:00 Ur Specific [place] 1.015 (1.005-1.030) 07/13/17 04:00 Urine Protein NEGATIVE mg/dL (NEGATIVE) 07/13/17 04:00 Urine Glucose (UA) NEGATIVE mg/dL (NEGATIVE) 07/13/17 04:00 Urine Ketones NEGATIVE mg/dL (NEGATIVE) 07/13/17 04:00 Urine Blood SMALL (NEGATIVE) H 07/13/17 04:00 Urine Nitrate NEGATIVE (NEGATIVE) 07/13/17 04:00 Urine Bilirubin NEGATIVE (NEGATIVE) 07/13/17 04:00 Urine Urobilinogen 0.2 E.U./dL (0.2 - 1.0) 07/13/17 04:00 Ur Leukocyte Esterase LARGE (NEGATIVE) H 07/13/17 04:00 Urine RBC 2-5 /hpf (0-5) 07/13/17 04:00 Urine WBC 25-50 /hpf (0-5) H 07/13/17 04:00 Ur Epithelial Cells FEW /lpf (FEW) 07/13/17 04:00 Urine Bacteria 3+ /hpf (NONE SEEN) H 07/13/17 04:00 - Physical Exam Vitals and I&O: Vital Signs Temp 98.2 F 07/15/17 12:00 Pulse 106 07/15/17 12:00 Resp 20 07/15/17 12:00 BP 137/62 07/15/17 12:00 Pulse Ox 92 07/15/17 12:00 Intake & Output 07/14/17 07/15/17 07/15/17 18:59 06:59 18:59 Intake Total 1050 1050 50 Balance 1050 1050 50 Weight (lbs) 47.627 kg Intake: Intake, IV Amount 1050 1000 50 Piperacillin Sodium/ 50 Tazobact 3.375 gm In Sodium Chloride 0.9% 50 ml @ 100 mls/hr IV Q8H [facility] Rx#:[id number] Sodium Chloride 0.9% 1, 1000 1000 000 ml @ 75 mls/hr IV . [id number] [facility] Rx#:[id number] cefTRIAXone 1 gm In 50 Sodium Chloride 0.9% 50 ml @ 100 mls/hr IV Q24HR [facility] Rx#:[id number] Oral 50 Other: # Voids 3 # Bowel Movements 0 Active Medications: Current Medications Acetaminophen (Tylenol) 650 mg PO Q6H PRN PRN Reason: Pain (Moderate) Stop: 09/13/17 10:44 Last Admin: 07/15/17 11:24 Dose: 650 mg Ascorbic Acid (Vitamin C) 500 mg PO DAILY [facility] Stop: 09/11/17 08:59 Last Admin: 07/15/17 08:56 Dose: 500 mg Calcium/Vitamin D (Oscal W/Vitamin D) 1 tab PO BID [facility] Stop: 09/11/17 08:59 Last Admin: 07/15/17 08:56 Dose: 1 tab Digoxin (Lanoxin) 0.125 mg PO DAILY [facility] Stop: 09/11/17 08:59 Last Admin: 07/15/17 08:56 Dose: 0.125 mg Ferrous Sulfate (Iron) 325 mg PO DAILY [facility] Stop: 09/11/17 08:59 Last Admin: 07/15/17 08:56 Dose: 325 mg Furosemide (Lasix) 40 mg PO BID [facility] Stop: 09/11/17 08:59 Last Admin: 07/15/17 08:56 Dose: Not Given Sodium Chloride (Nacl 0.9%) 1,000 mls @ 75 mls/hr IV .[id number] [facility] Stop: 09/11/17 08:31 Last Admin: 07/15/17 07:21 Dose: 75 mls/hr Piperacillin Sod/Tazobactam (Sod 3.375 gm/ Sodium Chloride) 50 mls @ 100 mls/ hr IV Q8H [facility] Stop: 09/13/17 07:59 Last Infusion: 07/15/17 11:23 Dose: Infused Potassium Phosphate 20 mmole/ (Sodium Chloride) 256.6667 mls @ 42.5 mls/hr IV X1 ONE Stop: 07/15/17 18:43 Last Admin: 07/15/17 12:55 Dose: 42.5 mls/hr Lactobacillus Rhamnosus (Culturelle 15b) 1 each PO DAILY [facility] Stop: 09/13/17 08:59 Last Admin: 07/15/17 08:57 Dose: 1 each Levothyroxine Sodium (Synthroid) 0.075 mg PO QDAC [facility] Stop: 09/13/17 07:29 Last Admin: 07/15/17 07:21 Dose: 0.075 mg Miscellaneous (Probiotic Screen) 1 [facility] PRN PRN PRN Reason: PROTOCOL Stop: 09/12/17 16:59 Potassium Chloride (Klor-Con) 20 meq PO DAILY [facility] Stop: 09/11/17 08:59 Senna (Senna) 8.6 mg PO DAILY [facility] Stop: 09/11/17 08:59 Last Admin: 07/15/17 08:57 Dose: 8.6 mg General: no acute distress, well developed, well nourished HEENT: atraumatic, normocephalic, PERRLA, EOMI Neck: supple, no thyromegaly Cardiovascular: S1S2, regular Lungs: clear to auscultation bilaterally, clear to percussion Abdomen: soft, no tender, no distended, no mass, no hepatomegaly, no splenomegaly Extremities: no cyanosis, no clubbing, no edema Neurological: awake, alert, oriented, CN 2-12 intact Skin: intact - Procedures Procedures: Procedures Procedure Code Date REPAIR SCALP SKIN, EXTERNAL APPROACH [id number] 07/13/17 RPR S/N/AX/GEN/TRNK 2.5CM/< 50089 07/13/17 Infectious Disease Assmt/Plan - Assessment Assessment: 1. E coli sepsis. 2. UTI, pyelonephritis. 3. HTN. - Plan Plan: Check renal us, and change zosyn back to Rocephin Nutritional Asmnt/Malnutr-PDOC - Dietary Evaluation Malnutrition Findings (Please click <Entered> for more info): Nutritional Asmnt/Malnutrition Start: 07/14/17 15: 11 Text: Status: Complete Freq: Document 07/14/17 16:29 LCHENG (Rec: 07/14/17 16:42 [email or web address]) Nutritional Asmnt/Malnutrition Patient General Information Nutritional Screening High Risk Consult Diagnosis leukocytosis, possiblely secondary to UTI Pertinent Medical Hx/Surgical Hx CAD, CFH, weakness Subjective Information Pt seen lying in bed at the time of visit, awake and alert . Pt reported appetite pretty good, has very few teeth noted , denied chewing or swallowing problem. Pt likes food, no food prefernce provided. Pt appeared mild muscle wasting on arms. Checked pt again in the afternoon, pt was confused . Per [employer]STITUTION BRANCH MANAGER, pt consumed about 60% of lunch, ate slowly, will continue to monitor dinner. Current Diet Order/ Nutrition Support Mech soft chopped, 1800 jasmyne ADA, ccho 45gm Pertinent Medications vitamin C, calcium, vitamin D, iron, lasix, synthroid, kcl, senna, NAcl 0.9% Pertinent Labs 07/14 Na 141, K 3.2, Cl 101, BUN 7, Cr 0.6, Ca 8.3, Glucose 75, Alb 2.4 Nutritional Hx/Data Height 1.63 m Height (Calculated Centimeters) 162.6 Current Weight (lbs) 45.359 kg Weight (Calculated Kilograms) 45.4 Weight (Calculated Grams) 96923.2 [place] Body Weight 120 % [place] Body Weight 83 Body Mass Index (BMI) 17.2 Weight Status Underweight GI Symptoms GI Symptoms None Last BM none Usual diet at home pt lives with family, eats vegetables, meat, dairy Skin Integrity/Comment: bruise to R/L arm, skin tear to right leg and buttocks, laceration to left head, has 4 stiches on left side of scaple Current %PO Fair (50-74%) Estimated Nutritional Goals Calories/Kcals/Kg 25-30 Kcals Calculated 6415-6984 based on IBW 54.5kg Protein g/k-1.2 Protein Calculated 55-65 Fluid: ml 1363-1635ml (1ml/kcal) Nutritional Problem 2. Problem Problem underweight Etiology possible inadequate energy intake Signs/Symptoms: BMI 17.2 1. Problem Problem altered nutrition related lab values Etiology imbalanced electrolytes Signs/Symptoms: K 3.2 Malnutrition Alert Protein-Calorie Malnutrition N/A Is there a minimum of two criteria No selected? Query Text:Check all the applicable criteria. A minimum of two criteria are recommended for diagnosis of either severe or non-severe malnutrition. Intervention/Recommendation Comments 1. If pt shows chewing difficulty, will consider down grade to [facility] soft ground diet. [employer]ANCH MANAGER made aware, will report to RN if need diet modification. 2. Monitor PO intake and tolerance, wt, labs and skin integrity 3. F/U as high risk in 2-3 days, 07/16-07/17 Expected Outcomes/Goals Expected Outcomes/Goals 1. PO intake to meet at least 75% of nutritional needs. 2. Wt stability, skin to remain intact, labs to approach WNL.
[2017-07-15] MEDS ORDERED: cefTRIAXone 2 GM in Sodium Chloride 0.9% 100 ML IV SCH (14:45)
--- NOTE | 2017-07-16 06:08 | Consultation ---
DATE OF CONSULTATION: 07/15/2017 ORTHOPEDIC SURGERY CONSULTATION HISTORY OF PRESENT ILLNESS: The patient is an 87-year-old lady admitted to [facility] via the Emergency Room on 07/13/2017. She had fallen at home and struck her head and was also complaining of pain in left wrist. She had treatment for her scalp laceration in the Emergency Room. I was called in orthopedic consultation by the admitting physician regarding her left wrist injury. PAST MEDICAL HISTORY: I am not able to get much history from the patient. Review of the record indicates the following diagnoses, treatment of left scalp laceration, left wrist injury/fracture, congestive heart failure, hypertension, COPD, urinary tract infection, hypothyroidism, and osteoporosis. FAMILY HISTORY: Not obtainable. REVIEW OF SYSTEMS: Unobtainable. PHYSICAL EXAMINATION: The patient was examined in her hospital room at [facility]. There was a removable wrist brace in place on the left. This was taken off. There is chronic stiffness and deformity of the left wrist. It was noted that she has limited movement of the wrist as well as the hand and fingers. They have stiffened up in an extended position. Flexion and extension of the wrist only a few degrees. Radial and ulnar deviation minimal. Pronation and supination very limited. Neurovascular otherwise intact. IMAGING STUDIES: I viewed the images in the PACS, two views of left wrist. There is a healed deformity in the distal one fourth of the shaft with slight curvature due to a prior fracture. There is deformity at the lower end of the radius extending into the joint, prior now healed comminuted intra-articular fracture. There are degenerative changes throughout the wrist joint. There is an overall appearance of osteoporosis to her bones. ORTHOPEDIC DIAGNOSES: 1. Osteoporosis. 2. Healed fracture, distal left radius with deformity. 3. Diffuse/stiffness of the left hand, wrist, and fingers. RECOMMENDATIONS: She should continue with her removable wrist splint, taking it off for skin care and hygiene. It is possible she has a new occult nondisplaced fracture in the old fracture, this will heal in 3-6 weeks. She should continue the wrist brace as long as she is symptomatic, perhaps 2-3 weeks. She might benefit from rehabilitation therapy to try and restore some function to her left hand and wrist, particularly the fingers to try and flex them. Thank you for allowing me to evaluate this interesting patient. JOB# [id number]
[2017-07-16] MEDS: Levothyroxine 0.075 Mg Tab PO SCH (06:59)
[2017-07-16] MEDS: Ferrous Sulfate 325 MG TAB PO SCH (08:54)
[2017-07-16] MEDS: Calcium Carb/Vit D 500 mg/200 U Tab PO SCH (08:55)
[2017-07-16] MEDS: Lactobacillus Rhamnosus GG 15 Billion CFU CAP.SPRINK PO SCH (08:55)
--- NOTE | 2017-07-16 09:19 | Diagnostic Imaging Report ---
Renal ultrasound HISTORY: Pain, pyelonephritis The right kidney appears in size (7.8 x 3.7 x 3.4 cm). No focal lesions. No hydronephrosis. The left kidney is also decreased in size (8.8 x 4.0 x 4.1 cm). No focal lesions. No hydronephrosis. Limited evaluation of urinary bladder due to lack of distention. IMPRESSION: 1. Diminished renal size is bilaterally. No focal lesions or hydronephrosis.
--- NOTE | 2017-07-16 12:08 | Infectious Disease Prog Note ---
Infectious Disease Subjective - Review of Systems Service Date: 07/16/17 Subjective: There is no new change, no fever. Infectious Disease Objective - Results Result Diagrams: 07/15/17 05:40 07/15/17 05:40 Recent Labs: Laboratory Last Values WBC 11.8 Th/cmm (4.8-10.8) H D 07/15/17 05:40 RBC 3.56 Mil/cmm (3.80-5.20) L 07/15/17 05:40 Hgb 10.6 gm/dL (12-16) L 07/15/17 05:40 Hct 31.7 % (41.0-60) L 07/15/17 05:40 MCV 89.0 fl (81-100) 07/15/17 05:40 MCH 29.7 pg (27.0-31.0) 07/15/17 05:40 MCHC Differential 33.4 pg (28.0-36.0) 07/15/17 05:40 RDW 15.7 % (11.5-20.0) 07/15/17 05:40 Plt Count 274 Th/cmm (150-400) 07/15/17 05:40 MPV 7.3 fl 07/15/17 05:40 Neutrophils % 68.7 % (40.0-80.0) 07/14/17 06:00 Band Neutrophils % 4 % (0-10) 07/13/17 03:23 Lymphocytes % 15.8 % (20.0-50.0) L 07/14/17 06:00 Monocytes % 8.1 % (2.0-10.0) 07/14/17 06:00 Eosinophils % 5.5 % (0.0-5.0) H 07/14/17 06:00 Basophils % 1.9 % (0.0-2.0) 07/14/17 06:00 Neutrophils (Manual) 85 % (40-80) H 07/13/17 03:23 Lymphocytes 7 % (20-50) L 07/13/17 03:23 Monocytes 4 % (2-10) 07/13/17 03:23 Platelet Estimate ADEQUATE (NORMAL) 07/13/17 03:23 Sodium 138 mEq/L (136-145) 07/15/17 05:40 Potassium 3.1 mEq/L (3.5-5.1) L 07/15/17 05:40 Chloride 98 mEq/L (98-107) 07/15/17 05:40 Carbon Dioxide 32.2 mEq/L (21.0-31.0) H 07/15/17 05:40 Anion Gap 10.9 (7.0-16.0) 07/15/17 05:40 BUN 6 mg/dL (7-25) L 07/15/17 05:40 Creatinine 0.6 mg/dL (0.6-1.2) 07/15/17 05:40 Est GFR ( Amer) TNP 07/15/17 05:40 Est GFR (Non-Af Amer) TNP 07/15/17 05:40 BUN/Creatinine Ratio 10.0 07/15/17 05:40 Glucose 99 mg/dL (70-105) 07/15/17 05:40 Whole Bld Lactic Acid 0.88 mmol/L (0.60-1.99) 07/13/17 03:23 Calcium 8.1 mg/dL (8.6-10.3) L 07/15/17 05:40 Total Bilirubin 0.4 mg/dL (0.3-1.0) 07/15/17 05:40 AST 16 U/L (13-39) 07/15/17 05:40 ALT 7 U/L (7-52) 07/15/17 05:40 Alkaline Phosphatase 33 U/L (34-104) L 07/15/17 05:40 Total Protein 5.2 gm/dL (6.0-8.3) L 07/15/17 05:40 Albumin 2.4 gm/dL (3.7-5.3) L 07/15/17 05:40 Globulin 2.8 gm/dL 07/15/17 05:40 Albumin/Globulin Ratio 0.9 (1.0-1.8) L 07/15/17 05:40 TSH 13.35 uIU/ml (0.34-5.60) H 07/14/17 06:00 Urine Source CATH 07/13/17 04:00 Urine Color YELLOW 07/13/17 04:00 Urine Clarity HAZY (CLEAR) 07/13/17 04:00 Urine pH 6.5 (4.6 - 8.0) 07/13/17 04:00 Ur Specific [place] 1.015 (1.005-1.030) 07/13/17 04:00 Urine Protein NEGATIVE mg/dL (NEGATIVE) 07/13/17 04:00 Urine Glucose (UA) NEGATIVE mg/dL (NEGATIVE) 07/13/17 04:00 Urine Ketones NEGATIVE mg/dL (NEGATIVE) 07/13/17 04:00 Urine Blood SMALL (NEGATIVE) H 07/13/17 04:00 Urine Nitrate NEGATIVE (NEGATIVE) 07/13/17 04:00 Urine Bilirubin NEGATIVE (NEGATIVE) 07/13/17 04:00 Urine Urobilinogen 0.2 E.U./dL (0.2 - 1.0) 07/13/17 04:00 Ur Leukocyte Esterase LARGE (NEGATIVE) H 07/13/17 04:00 Urine RBC 2-5 /hpf (0-5) 07/13/17 04:00 Urine WBC 25-50 /hpf (0-5) H 07/13/17 04:00 Ur Epithelial Cells FEW /lpf (FEW) 07/13/17 04:00 Urine Bacteria 3+ /hpf (NONE SEEN) H 07/13/17 04:00 - Physical Exam Vitals and I&O: Vital Signs Temp 97.6 F 07/16/17 08:00 Pulse 76 07/16/17 08:54 Resp 20 07/16/17 08:00 BP 103/45 07/16/17 08:55 Pulse Ox 96 07/16/17 08:00 Intake & Output 07/15/17 07/16/17 07/16/17 18:59 06:59 18:59 Intake Total 50 1000 120 Balance 50 1000 120 Weight (lbs) 47.627 kg Intake: Intake, IV Amount 50 1000 Piperacillin Sodium/ 50 Tazobact 3.375 gm In Sodium Chloride 0.9% 50 ml @ 100 mls/hr IV Q8H [facility] Rx#:[id number] Sodium Chloride 0.9% 1, 1000 000 ml @ 75 mls/hr IV . [id number] [facility] Rx#:[id number] Oral 120 Active Medications: Current Medications Acetaminophen (Tylenol) 650 mg PO Q6H PRN PRN Reason: Pain (Moderate) Stop: 09/13/17 10:44 Last Admin: 07/15/17 11:24 Dose: 650 mg Ascorbic Acid (Vitamin C) 500 mg PO DAILY [facility] Stop: 09/11/17 08:59 Last Admin: 07/16/17 08:54 Dose: 500 mg Calcium/Vitamin D (Oscal W/Vitamin D) 1 tab PO BID [facility] Stop: 09/11/17 08:59 Last Admin: 07/16/17 08:55 Dose: 1 tab Digoxin (Lanoxin) 0.125 mg PO DAILY [facility] Stop: 09/11/17 08:59 Last Admin: 07/16/17 08:54 Dose: 0.125 mg Ferrous Sulfate (Iron) 325 mg PO DAILY [facility] Stop: 09/11/17 08:59 Last Admin: 07/16/17 08:54 Dose: 325 mg Furosemide (Lasix) 40 mg PO BID [facility] Stop: 09/11/17 08:59 Last Admin: 07/16/17 08:55 Dose: 40 mg Sodium Chloride (Nacl 0.9%) 1,000 mls @ 75 mls/hr IV .[id number] [facility] Stop: 09/11/17 08:31 Last Admin: 07/15/17 22:16 Dose: 75 mls/hr Ceftriaxone Sodium 2 gm/ (Dextrose) 100 mls @ 100 mls/hr IV Q24H [facility] Stop: 09/13/17 14:44 Lactobacillus Rhamnosus (Culturelle 15b) 1 each PO DAILY [facility] Stop: 09/13/17 08:59 Last Admin: 07/16/17 08:55 Dose: 1 each Levothyroxine Sodium (Synthroid) 0.075 mg PO QDAC [facility] Stop: 09/13/17 07:29 Last Admin: 07/16/17 06:59 Dose: 0.075 mg Miscellaneous (Probiotic Screen) 1 [facility] PRN PRN PRN Reason: PROTOCOL Stop: 09/12/17 16:59 Potassium Chloride (Klor-Con) 20 meq PO DAILY [facility] Stop: 09/11/17 08:59 Last Admin: 07/16/17 08:54 Dose: 20 meq Senna (Senna) 8.6 mg PO DAILY [facility] Stop: 09/11/17 08:59 Last Admin: 07/16/17 08:54 Dose: 8.6 mg General: no acute distress, cachectic HEENT: atraumatic, normocephalic, PERRLA, EOMI, moist mucous membrane Neck: supple Cardiovascular: S1S2, regular Lungs: clear to auscultation bilaterally, clear to percussion Abdomen: soft, bowel sounds, no tender, no distended, no rebound Extremities: no cyanosis, no clubbing, no edema Skin: intact - Procedures Procedures: Procedures Procedure Code Date REPAIR SCALP SKIN, EXTERNAL APPROACH [id number] 07/13/17 RPR S/N/AX/GEN/TRNK 2.5CM/< 21275 07/13/17 Infectious Disease Assmt/Plan - Assessment Assessment: 1. E coli sepsis. 2. UTI, pyelonephritis. 3. HTN. - Plan Plan: Continue rocephin for 7 more days. Nutritional Asmnt/Malnutr-PDOC - Dietary Evaluation Malnutrition Findings (Please click <Entered> for more info): Nutritional Asmnt/Malnutrition Start: 07/14/17 15: 11 Text: Status: Complete Freq: Document 07/14/17 16:29 HENG (Rec: 07/14/17 16:42 [email or web address]) Nutritional Asmnt/Malnutrition Patient General Information Nutritional Screening High Risk Consult Diagnosis leukocytosis, possiblely secondary to UTI Pertinent Medical Hx/Surgical Hx CAD, CFH, weakness Subjective Information Pt seen lying in bed at the time of visit, awake and alert . Pt reported appetite pretty good, has very few teeth noted , denied chewing or swallowing problem. Pt likes food, no food prefernce provided. Pt appeared mild muscle wasting on arms. Checked pt again in the afternoon, pt was confused . Per MID LEVEL PROVIDER, pt consumed about 60% of lunch, ate slowly, will continue to monitor dinner. Current Diet Order/ Nutrition Support [facility] soft chopped, 1800 jasmyne ADA, ccho 45gm Pertinent Medications vitamin C, calcium, vitamin D, iron, lasix, synthroid, kcl, senna, NAcl 0.9% Pertinent Labs 07/14 Na 141, K 3.2, Cl 101, BUN 7, Cr 0.6, Ca 8.3, Glucose 75, Alb 2.4 Nutritional Hx/Data Height 1.63 m Height (Calculated Centimeters) 162.6 Current Weight (lbs) 45.359 kg Weight (Calculated Kilograms) 45.4 Weight (Calculated Grams) 33870.2 [place] Body Weight 120 % [place] Body Weight 83 Body Mass Index (BMI) 17.2 Weight Status Underweight GI Symptoms GI Symptoms None Last BM none Usual diet at home pt lives with family, eats vegetables, meat, dairy Skin Integrity/Comment: bruise to R/L arm, skin tear to right leg and buttocks, laceration to left head, has 4 stiches on left side of scaple Current %PO Fair (50-74%) Estimated Nutritional Goals Calories/Kcals/Kg 25-30 Kcals Calculated 2949-1827 based on IBW 54.5kg Protein g/k-1.2 Protein Calculated 55-65 Fluid: ml 1363-1635ml (1ml/kcal) Nutritional Problem 2. Problem Problem underweight Etiology possible inadequate energy intake Signs/Symptoms: BMI 17.2 1. Problem Problem altered nutrition related lab values Etiology imbalanced electrolytes Signs/Symptoms: K 3.2 Malnutrition Alert Protein-Calorie Malnutrition N/A Is there a minimum of two criteria No selected? Query Text:Check all the applicable criteria. A minimum of two criteria are recommended for diagnosis of either severe or non-severe malnutrition. Intervention/Recommendation Comments 1. If pt shows chewing difficulty, will consider down grade to [facility] soft ground diet. MID LEVEL PROVIDER made aware, will report to RN if need diet modification. 2. Monitor PO intake and tolerance, wt, labs and skin integrity 3. F/U as high risk in 2-3 days, 07/16-07/17 Expected Outcomes/Goals Expected Outcomes/Goals 1. PO intake to meet at least 75% of nutritional needs. 2. Wt stability, skin to remain intact, labs to approach WNL.
[2017-07-16] MEDS ORDERED: KCL 20mEq/100mL Premix 20 MEQ/100 ML PIGGYBACK IV ONE (12:43)
[2017-07-16 13:03] LABS: % BASOPHILS 0.2 % (0.0-2.0); % EOSINOPHILS 6.8 % (0.0-5.0); % LYMPHOCYTES 12.1 % (20.0-50.0); % MONOCYTES 8.1 % (2.0-10.0); % NEUTROPHILS 72.8 % (40.0-80.0); EOSINOPHILE ABSOLUTE 0.5 Th/cmm (0.1-0.4); HEMATOCRIT 30.4 % (41.0-60); HEMOGLOBIN 9.9 gm/dL (12-16); LYMPHOCYTE ABSOLUTE 0.9 Th/cmm (1.5-3.0); MEAN CELL VOLUME 88.9 fl (81-100); MEAN CORPUSCULAR HEMOGLOBIN 29.1 pg (27.0-31.0); MEAN CORPUSCULAR HGB CONC 32.7 pg (28.0-36.0); MEAN PLATELET VOLUME 6.8 fl; MONOCYTE ABSOLUTE 0.6 Th/cmm (0.3-1.0); NEUTROPHILE ABSOLUTE 5.3 Th/cmm (1.8-8.0); PLATELET COUNT 251 Th/cmm (150-400); RED BLOOD COUNT 3.42 Mil/cmm (3.80-5.20); RED CELL DISTRIBUTION WIDTH 15.1 % (11.5-20.0)
[2017-07-16 13:09] LABS: WHITE BLOOD COUNT 7.3 Th/cmm (4.8-10.8)
--- NOTE | 2017-07-16 13:45 | Discharge Summary ---
General Discharge Summary - Discharge Summary Discharge Date: 07/16/17 Laboratory Findings: Laboratory Tests 07/14/17 07/14/17 07/14/17 06:00 06:00 06:00 WBC 7.4 D RBC 3.65 L Hgb 10.7 L Hct 32.2 L MCV 88.2 MCH 29.4 MCHC Differential 33.3 RDW 15.8 Plt Count 321 MPV 7.3 Neutrophils % 68.7 Lymphocytes % 15.8 L Monocytes % 8.1 Eosinophils % 5.5 H Basophils % 1.9 Sodium 141 Potassium 3.2 L Chloride 101 Carbon Dioxide 34.2 H Anion Gap 9.0 BUN 7 Creatinine 0.6 Est GFR ( Amer) TNP Est GFR (Non-Af Amer) TNP BUN/Creatinine Ratio 11.7 Glucose 75 Calcium 8.3 L Total Bilirubin 0.4 AST 17 ALT 7 Alkaline Phosphatase 38 Total Protein 5.2 L Albumin 2.4 L Globulin 2.8 Albumin/Globulin Ratio 0.9 L TSH 13.35 H 07/15/17 07/15/17 07/16/17 05:40 05:40 13:00 WBC 11.8 H D 7.3 D RBC 3.56 L 3.42 L Hgb 10.6 L 9.9 L Hct 31.7 L 30.4 L MCV 89.0 88.9 MCH 29.7 29.1 MCHC Differential 33.4 32.7 RDW 15.7 15.1 Plt Count 274 251 MPV 7.3 6.8 Neutrophils % 72.8 Lymphocytes % 12.1 L Monocytes % 8.1 Eosinophils % 6.8 H Basophils % 0.2 Sodium 138 Potassium 3.1 L Chloride 98 Carbon Dioxide 32.2 H Anion Gap 10.9 BUN 6 L Creatinine 0.6 Est GFR ( Amer) TNP Est GFR (Non-Af Amer) TNP BUN/Creatinine Ratio 10.0 Glucose 99 Calcium 8.1 L Total Bilirubin 0.4 AST 16 ALT 7 Alkaline Phosphatase 33 L Total Protein 5.2 L Albumin 2.4 L Globulin 2.8 Albumin/Globulin Ratio 0.9 L TSH Disposition: Other Care w/in this hosp Home Medications: Home Medication Medication Instructions Recorded Type Ascorbic Acid [Vitamin C] 500 mg PO DAILY 07/13/17 History Calcium Carbonate/Vitamin D3 1 each PO BID 07/13/17 History [Calcium 600-Vit D3 400 Tablet] Digoxin [Lanoxin] 0.125 mg PO DAILY 07/13/17 History Ferrous Sulfate [Iron] 325 mg PO DAILY 07/13/17 History Furosemide [Lasix] 40 mg PO BID 07/13/17 History Levothyroxine [Synthroid] 0.05 mg PO QDAC 07/13/17 History Potassium Chloride 1 cap PO DAILY 07/13/17 History Sennosides [Senna Laxative] 8.6 mg PO DAILY 07/13/17 History Inpatient Medications: Current Medications Acetaminophen (Tylenol) 650 mg PO Q6H PRN PRN Reason: Pain (Moderate) Stop: 09/13/17 10:44 Last Admin: 07/15/17 11:24 Dose: 650 mg Ascorbic Acid (Vitamin C) 500 mg PO DAILY SONIA Stop: 09/11/17 08:59 Last Admin: 07/16/17 08:54 Dose: 500 mg Calcium/Vitamin D (Oscal W/Vitamin D) 1 tab PO BID SONIA Stop: 09/11/17 08:59 Last Admin: 07/16/17 08:55 Dose: 1 tab Digoxin (Lanoxin) 0.125 mg PO DAILY SONIA Stop: 09/11/17 08:59 Last Admin: 07/16/17 08:54 Dose: 0.125 mg Ferrous Sulfate (Iron) 325 mg PO DAILY SONIA Stop: 09/11/17 08:59 Last Admin: 07/16/17 08:54 Dose: 325 mg Furosemide (Lasix) 40 mg PO BID SONIA Stop: 09/11/17 08:59 Last Admin: 07/16/17 08:55 Dose: 40 mg Sodium Chloride (Nacl 0.9%) 1,000 mls @ 75 mls/hr IV .[id number] SONIA Stop: 09/11/17 08:31 Last Admin: 07/15/17 22:16 Dose: 75 mls/hr Ceftriaxone Sodium 2 gm/ (Dextrose) 100 mls @ 100 mls/hr IV Q24H SONIA Stop: 09/13/17 14:44 Potassium Chloride 20 meq/ (Sodium Chloride) 260 mls @ 50 mls/hr IV .[id number] ONE Stop: 07/16/17 18:11 Lactobacillus Rhamnosus (Culturelle 15b) 1 each PO DAILY SONIA Stop: 09/13/17 08:59 Last Admin: 07/16/17 08:55 Dose: 1 each Levothyroxine Sodium (Synthroid) 0.075 mg PO QDAC SONIA Stop: 09/13/17 07:29 Last Admin: 07/16/17 06:59 Dose: 0.075 mg Miscellaneous (Probiotic Screen) 1 ea MC PRN PRN PRN Reason: PROTOCOL Stop: 09/12/17 16:59 Potassium Chloride (Klor-Con) 20 meq PO DAILY SONIA Stop: 09/11/17 08:59 Last Admin: 07/16/17 08:54 Dose: 20 meq Senna (Senna) 8.6 mg PO DAILY SONIA Stop: 09/11/17 08:59 Last Admin: 07/16/17 08:54 Dose: 8.6 mg Consults and Follow-Up: MILENA BERGMAN [Other] José Smart [Primary Care Provider] -
[2017-07-16] MEDS: Sodium Chloride 0.9% 1,000 ML IV SCH (13:55)
== END 2017-07-16 18:59 | disposition home or self-care (01) | DRG 872 ==
LOC: ER 00:10 → MSI 07:02
PROVIDERS: ADMIT General Practice; ATTEND General Practice
PROC: 0HQ0XZZ Repair Scalp Skin, External Approach (ICD-10-PCS; principal; 2017-07-13)
DX: A41.51 Sepsis due to Escherichia coli [E. coli] (principal); I11.0 Hypertensive heart disease with heart failure; I50.9 Heart failure, unspecified; J44.9 Chronic obstructive pulmonary disease, unspecified; S01.01XA Laceration without foreign body of scalp, initial encounter; N12 Tubulo-interstitial nephritis, not specified as acute or chronic; S62.101A Fracture of unspecified carpal bone, right wrist, initial encounter for closed fracture; L03.811 Cellulitis of head [any part, except face]; D50.9 Iron deficiency anemia, unspecified; E03.9 Hypothyroidism, unspecified; I25.10 Atherosclerotic heart disease of native coronary artery without angina pectoris; M81.0 Age-related osteoporosis without current pathological fracture; W18.30XA Fall on same level, unspecified, initial encounter; Y93.89 Activity, other specified; Y92.89 Other specified places as the place of occurrence of the external cause; Y99.8 Other external cause status
CPT/HCPCS: 12001; 36415-UA; 70450-TC; 73100-TC-LT; 76770-TC; 80053-TC; 81001-TC; 83605; 84443-TC; 85007-TC; 85025-TC; 85027-TC; 87086-90; 90799; 94760; J0696; J2543; J3480; J7030; Z7610